=== PATIENT | male | born 1975 | race African-American/Black ===

== ENCOUNTER 2016-08-01 12:25 | Emergency (ER) | payer OTHER, SELFPAY ==
[2016-08-01 13:16] LABS: Bilirubin Negative (Negative); Blood, Urine Negative (Negative); Glucose, Urine (Dipstick) Negative (Negative); Ketone, Urine Negative (Negative); Nitrite Negative (Negative); Protein, Urine (Dipstick) Negative (Neg-Trace); Urobilinogen 0.2 mg/dL (0.2-1.0)
--- NOTE | 2016-08-01 13:31 | RAD ---
EXAM: CHEST 2 VIEWS: HISTORY: Back pain, left-sided. FINDINGS: Normal cardiac silhouette. The pulmonary vessels and hilum are normal. Costophrenic angles are phuc ar. No mass. No consolidation. No pneumothorax or osseous abnormalities. IMPRESSION: No acute cardiopulmonary process. POS: YENIH
[2016-08-01 13:50] LABS: #Basophils 0.1 thou/uL (0.0-0.2); #Lymphocytes 2.6 thou/uL (1.20-3.40); #Monocytes 0.5 thou/uL (0.11-0.59); #Neutrophils 3.7 thou/uL (1.40-6.50); %Basophils 1.8 % (0.0-1.0); %Eosinophils 0.9 % (0.0-10.0); %Lymphocytes 37.2 % (21.0-51.0); %Monocytes 7.7 % (0.0-10.0); Hematocrit 57.5 % (42.0-52.0); Red Blood Cell (RBC) Count 6.73 mill/uL (4.70-6.10)
[2016-08-01 13:53] LABS: Squamous Epithelial 0-3 HPF (0-3); WBC/HPF 0-3 HPF (0-3)
[2016-08-01 14:12] LABS: ALT (SGPT) 42 U/L (0-55); AST (SGOT) 31 U/L (5-34); Acetaminophen Less than 3.0 mcg/mL (10.0-30.0); Alkaline Phosphatase 96 U/L (40-150); Anion Gap 17 mmol/L (10-20); BUN (Urea Nitrogen) 9 mg/dL (8.9-20.6); Bilirubin, Total 0.5 mg/dL (0.2-1.2); Calc. Creatinine Clearance 0 mL/min (70-130); Carbon Dioxide 22 mmol/L (22-29); Chloride 104 mmol/L (98-107); Estimated GFR-MDRD 75; Globulin 4.5 g/dL (2.4-3.5); Protein, Total 9.1 g/dL (6.0-8.3); Salicylate Less than 5.0 mg/dL (15.0-30.0)
--- NOTE | 2016-08-01 14:31 | ERRECORD ---
[facility] (12:52 SHAN) CHIEF COMPLAINT: Patient presents for evaluation of pain, Patient presents for evaluation of tenderness. HISTORIAN: History provided by patient, pain in the left lower posterior costal margin since Thursday; 5 days. no apparent cause. has had lumbar spine surgery in the past. TIME COURSE: Gradual onset of symptoms. EXACERBATED BY: Patient's condition exacerbated by movement. RELIEVED BY: Patient's condition relieved by nothing. ROS (12:53 SHAN) CONSTITUTIONAL: Negative constitutional review of systems. EYES: Negative eye review of systems. ENT: Negative ears, nose, throat review of systems. CARDIOVASCULAR: Negative cardiovascular review of systems. RESPIRATORY: Negative respiratory review of systems. GI: Negative gastrointestinal review of systems. MUSCULOSKELETAL: Negative musculoskeletal review of systems. SKIN: Negative skin review of systems. NEUROLOGIC: Negative neurologic review of systems. NOTES: All systems reviewed, negative except as described above. PAST MEDICAL HISTORY (12:38 SMOO) MEDICAL HISTORY: Flu vaccine not up to date, Tetanus immunization up to date, Date of immunization: 2011, Past medical history includes history of hyperlipidemia, high cholesterol, Flu vaccine not up to date, Past medical history includes history of diabetes, diet controlled. VERIFIED 17. MALE SURGICAL HISTORY: Surgical history of orthopedic surgery, back and left ankle. VERIFIEFD 08-01-16. PSYCHIATRIC HISTORY: Psychiatric history includes, depression, no previous inpatient psychiatric admissions.VERIFIED 08-01-17. SOCIAL HISTORY: Patient drinks every day, less than 5 drinks per day, Patient currently uses drugs, abuses marijuana, Last used: 07/06/2016, Patient currently uses tobacco, smokes cigarettes, daily, Patient has smoked for 15 years, Patient smokes 1 pack per day, Lives at home, with family. VERIFIED 17. KNOWN ALLERGIES No Known Allergies (Unconfirmed) No Known Drug Allergies CURRENT MEDICATIONS (12:36 SMOO) None VITAL SIGNS VITAL SIGNS: BP: 149/99, Pulse: 96, Resp: 18, Temp: 97.6 (Oral), Pain: 10, O2 sat: 99 on Room Air, Time: 08/01/2016 12:32. (12:32 SMOO) &a-1R&a+25V*p+0X*y8458T*c202B*c15G*c2P*p-0X&a-25V&a+1R Name: Sindi Sunshine : 1975 M41 MedRec: [id number] AcctNum: [id number] Prepared: ThuAug 01, 2016 15:54 by Interface Page 1 of 3 pMD [facility] EMERGENCY RECORD BP: 145/88, Pulse: 92, Resp: 18, Temp: 97.6, Pain: 5, O2 sat: 100 on RA, Time: 08/01/2016 14:15. (14:15 SMOO) PHYSICAL EXAM (12:53 [facility]) CONSTITUTIONAL: Patient afebrile, Pulse normal, Blood pressure normal, Respiratory rate normal, Normal pulse oximetry, Patient appears non toxic, Patient appears pain free, Patient alert and oriented to person, place and time, Nursing notes reviewed. HEAD: Head exam included findings of head atraumatic, normocephalic. EYES: Eye exam included findings of eyelids normal to inspection, Pupils equally round and reactive to light, Extraocular muscles intact. ENT: Pharynx exam normal, Uvula exam normal, Tonsil exam normal. NECK: Neck exam included findings of normal range of motion, Trachea midline. RESPIRATORY CHEST: Respiratory and chest exam normal. CARDIOVASCULAR: Cardiovascular exam included findings of heart rate regular rate and rhythm, Heart sounds normal. ABDOMEN MALE: Abdominal exam included findings of abdomen nontender, Bowel sounds normal. BACK: Pain largely localized to the left inner posterior costal margins; appears very tender and superficial. UPPER EXTREMITY: Upper extremity exam included findings of inspection normal, Range of motion normal. NEURO: Neuro exam normal. SKIN: Skin exam normal. DOCTOR NOTES (14:10 SHAN) TEXT: labs and chest x-ray good; pain clearly increased with muscle motion; due to expressed degree of pain, recommended he do a ct of abdomen; he deffered. Then requested medications stronger than Tylenol 4 or [place]; explained that the medications beyond that would need to be through a regular provider or a pain management provider. DATA REVIEWED: Lab data reviewed, Xray data reviewed. PROBLEM LIST No recorded problems DIAGNOSIS (14:07 SHAN) FINAL: PRIMARY: back pain, muscular. PRESCRIPTION Flexeril: TABLET : 10 mg : ORAL : Quantity: 1 Unit: tab(s) Route: ORAL Schedule: every 6 hours PRN Dispense: 30 Unit: tab(s) May substitute. Refills: No Refills . (14:04 ANJALI) NOTES: No Refills. (14:04 ANJALI) Tylenol-Codeine #3: TABLET : 300 mg-30 mg : ORAL : Quantity: &a-1R&a+25V*p+0X*y1054R*c202B*c15G*c2P*p-0X&a-25V&a+1R Name: Sindi Sunshine : 1975 [facility] MedRec: [id number] AcctNum: [id number] Prepared: ThuAug 01, 2016 15:54 by Interface Page 2 of 3 pMD [facility] EMERGENCY RECORD 1 Unit: tab(s) Route: ORAL Schedule: every 6 hours PRN Dispense: 30 Unit: tab(s) May substitute. Refills: No Refills . (14:05 ANJALI) NOTES: No Refills. (14:05 ANJALI) DISPOSITION PATIENT: Disposition Type: Discharge, Disposition: *Discharge Home. (14:07 ANJALI) Patient left the department. (14:21 XENIA) Hutchinson: ANJALI=MD Javan, Bernard MICHAELS=ISABELA Monatnez, Yvonne &a-1R&a+25V*p+0X*d9157Y*c202B*c15G*c2P*p-0X&a-25V&a+1R Name: Sindi Sunshine Moses : 1975 [facility] MedRec: [id number] AcctNum: [id number] Prepared: ThuAug 01, 2016 15:54 by Interface Page 3 of 3 pMD MTDD
--- NOTE | 2016-08-01 14:34 | PICIS ---
[facility] EMERGENCY RECORD TRIAGE (ThuAug 01, 2016 12:35 SMOO) TRIAGE NOTES: LEFT FLANK PAIN X 1 WEEK, WORSE TODAY, RADIATES TO FRONT. (ThuAug 01, 2016 12:35 SMOO) PATIENT: NAME: Sindi Sunshine, AGE: 41, GENDER: male, : Yaquelin 1975, TIME OF GREET: ThuAug 01, 2016 12:26, PREFERRED LANGUAGE: Ukrainian, ETHNICITY: Not or , ECODE BILLING MAP: [facility], SSN: [id number], Zip Code: [address], KG WEIGHT: 113.4 (est.), PHONE: CELL, , , PERSON ID: [id number], PCP: MD Adams Jacques. (ThuAug 01, 2016 12:35 SMOO) COMPLAINT: LEFT SIDE BACK PAIN. (12:48 SMOO) ADMISSION: URGENCY: 3 Urgent, ADMISSION SOURCE: Home, TRANSPORT: Walk-in, BED: ER -03. (ThuAug 01, 2016 12:35 SMOO) IMMUNIZATIONS: Flu vaccine not up to date. (12:38 SMOO) SIRS SCORING: Heart Rate 55-109 (0), Temp range 96.8-101.1 (0), respiratory rate 12-24 (0), Mental Status altered: no (0), Infection or Suspected Infection: No. (12:38 SMOO) TRIAGE SCREENING: Patient denies suicidal ideation, Patient denies presence of domestic violence. (12:38 SMOO) PROVIDERS: TRIAGE NURSE: Yvonne Montanez RN. (ThuAug 01, 2016 12:35 SMOO) VITAL SIGNS: BP 149/99, Pulse 96, Resp 18, Temp 97.6, (Oral), Pain 10, O2 Sat 99, on Room Air, Time 08/01/2016 12:32. (12:32 SMOO) PREVIOUS VISIT ALLERGIES: No Known Drug Allergies. (ThuAug 01, 2016 12:35 SMOO) No Known Drug Allergies. (12:38 SMOO) KNOWN ALLERGIES No Known Allergies (Unconfirmed) No Known Drug Allergies CURRENT MEDICATIONS (12:36 SMOO) None VITAL SIGNS VITAL SIGNS: BP: 149/99, Pulse: 96, Resp: 18, Temp: 97.6 (Oral), Pain: 10, O2 sat: 99 on Room Air, Time: 08/01/2016 12:32. (12:32 SMOO) BP: 145/88, Pulse: 92, Resp: 18, Temp: 97.6, Pain: 5, O2 sat: 100 on RA, Time: 08/01/2016 14:15. (14:15 SMOO) NURSING ASSESSMENT: BACK (12:43 SMOO) CONSTITUTIONAL: Patient arrives ambulatory, Gait steady, History obtained from patient, Patient appears comfortable, Patient cooperative, Patient alert, Oriented to person, place and time, Skin warm, Skin dry, Skin normal in color, Mucous membranes pink, Mucous membranes moist, Patient is well-groomed, Patient complains of left side back pain, pt denies any urinary symptoms, states back has been hurting x 1 week but today when he coughs or laughs, it is worse. &a-1R&a+25V*p+0X*t5066U*c202B*c15G*c2P*p-0X&a-25V&a+1R Name: Sindi Sunshine : 1975 M41 MedRec: [id number] AcctNum: [id number] Prepared: ThuAug 01, 2016 16:01 by Interface Page 1 of 9 pMD [facility] EMERGENCY RECORD PAIN: unbearable pain, to the lower back, left side of back, on a scale 0-10 patient rates pain as 10, Pain exacerbated by, laughing, coughing, sneezing, Nothing has been tried to alleviate the pain. NURSING PROCEDURE: DISCHARGE NOTE (14:15 SMOO) DISCHARGE: Patient discharged to home, ambulating without assistance, driving self, unaccompanied, Summary of Care printed/ provided, Prescriptions given and instructions on side effects given, Name of prescription(s) given: FLEXARIL TYLENOL #3. VITAL SIGNS: BP: 145, / 88, Pulse: 92, Resp: 18, Temp: 97.6, Pain: 5, O2 sat: 100, on: RA. NURSING PROCEDURE: IV (13:00 MSPE) IV SITE 1: IV therapy indicated for hydration, IV therapy indicated for medication administration, IV established, to the right antecubital, using a 20 gauge catheter, in one attempt, IV site prepped with chloraprep, Saline lock established, Flushed with normal saline (mls): 10, Labs drawn at time of placement, labeled in the presence of the patient and sent to lab. NURSING PROCEDURE: TRANSPORT TO TESTS TRANSPORT TO TESTS: Patient transported to x-ray, ambulatory, Accompanied by x-ray hemodialysis technician. (13:03 MSPE) Patient transported to x-ray, ambulatory, Accompanied by x-ray hemodialysis technician, Patient arrived in location at 13:04, Patient departed location at 13:06. (12:58 CCRI) FOLLOW-UP: After procedure, patient returned to emergency department. (13:06 MSPE) ORDER DETAILS Order Name: CBC with Differential, Status: Active, Time: 12:52 08/01/2016, User: ANJALI, - Ordered for: MD Edouard Stanley, - Entered by: MD Edouard Stanley - Sriram Aug 01, 2016 12:52, - Quantity: 1, Order Name: Comprehensive Metabolic Panel, Status: Active, Time: 12:52 08/01/2016, User: ANJALI, - Ordered for: MD Edouard Stanley, - Entered by: MD Edouard Stanley - Sriram Aug 01, 2016 12:52, - Quantity: 1, Order Name: CRP (Inflamatory), Status: Active, Time: 12:52 08/01/2016, User: ANJALI, - Ordered for: MD Edouard Stanley, - Entered by: MD Edouard Stanley - Sriram Aug 01, 2016 12:52, - Quantity: 1, Order Name: Drug Screen, Serum, Status: Active, Time: 12:52 08/01/2016, User: ANJALI, - Ordered for: MD Edouard Stanley, &a-1R&a+25V*p+0X*w6876S*c202B*c15G*c2P*p-0X&a-25V&a+1R Name: Sindi Sunshine : 1975 M41 MedRec: [id number] AcctNum: [id number] Prepared: ThuAug 01, 2016 16:01 by Interface Page 2 of 9 pMD [facility] EMERGENCY RECORD - Entered by: MD Edouard Stanley - Fri Aug 01, 2016 12:52, - Quantity: 1, Order Name: Urinalysis with Microscopic, Status: Active, Time: 12:52 08/01/2016, User: ANJALI, - Ordered for: MD Edouard Stanley, - Entered by: MD Edouard Stanley - Fri Aug 01, 2016 12:52, - Quantity: 1, Order Name: XR Chest Pa & Lat STANDARD, Status: Active, Time: 12:51 08/01/2016, User: ANJALI, - Ordered for: MD Edouard Stanley, - Entered by: MD Edouard Stanley - Fri Aug 01, 2016 12:51, - Quantity: 1. HPI BACK (12:52 ANJALI) CHIEF COMPLAINT: Patient presents for evaluation of pain, Patient presents for evaluation of tenderness. HISTORIAN: History provided by patient, pain in the left lower posterior costal margin since Thursday; 5 days. no apparent cause. has had lumbar spine surgery in the past. TIME COURSE: Gradual onset of symptoms. EXACERBATED BY: Patient's condition exacerbated by movement. RELIEVED BY: Patient's condition relieved by nothing. ROS (12:53 SHAN) CONSTITUTIONAL: Negative constitutional review of systems. EYES: Negative eye review of systems. ENT: Negative ears, nose, throat review of systems. CARDIOVASCULAR: Negative cardiovascular review of systems. RESPIRATORY: Negative respiratory review of systems. GI: Negative gastrointestinal review of systems. MUSCULOSKELETAL: Negative musculoskeletal review of systems. SKIN: Negative skin review of systems. NEUROLOGIC: Negative neurologic review of systems. NOTES: All systems reviewed, negative except as described above. PAST MEDICAL HISTORY (12:38 SMOO) MEDICAL HISTORY: Flu vaccine not up to date, Tetanus immunization up to date, Date of immunization: 2011, Past medical history includes history of hyperlipidemia, high cholesterol, Flu vaccine not up to date, Past medical history includes history of diabetes, diet controlled. VERIFIED 08-01-16. MALE SURGICAL HISTORY: Surgical history of orthopedic surgery, back and left ankle. VERIFIEFD 08-01-16. PSYCHIATRIC HISTORY: Psychiatric history includes, depression, no previous inpatient psychiatric admissions.VERIFIED 08-01-16. SOCIAL HISTORY: Patient drinks every day, less than 5 drinks per day, Patient currently uses drugs, abuses marijuana, Last used: 07/06/2016, Patient currently uses tobacco, smokes cigarettes, &a-1R&a+25V*p+0X*y9866C*c202B*c15G*c2P*p-0X&a-25V&a+1R Name: Sindi Sunshine : 1975 M41 MedRec: [id number] AcctNum: [id number] Prepared: ThuAug 01, 2016 16:01 by Interface Page 3 of 9 pMD [facility] EMERGENCY RECORD daily, Patient has smoked for 15 years, Patient smokes 1 pack per day, Lives at home, with family. VERIFIED 08-01-16. PHYSICAL EXAM (12:53 SHAN) CONSTITUTIONAL: Patient afebrile, Pulse normal, Blood pressure normal, Respiratory rate normal, Normal pulse oximetry, Patient appears non toxic, Patient appears pain free, Patient alert and oriented to person, place and time, Nursing notes reviewed. HEAD: Head exam included findings of head atraumatic, normocephalic. EYES: Eye exam included findings of eyelids normal to inspection, Pupils equally round and reactive to light, Extraocular muscles intact. ENT: Pharynx exam normal, Uvula exam normal, Tonsil exam normal. NECK: Neck exam included findings of normal range of motion, Trachea midline. RESPIRATORY CHEST: Respiratory and chest exam normal. CARDIOVASCULAR: Cardiovascular exam included findings of heart rate regular rate and rhythm, Heart sounds normal. ABDOMEN MALE: Abdominal exam included findings of abdomen nontender, Bowel sounds normal. BACK: Pain largely localized to the left inner posterior costal margins; appears very tender and superficial. UPPER EXTREMITY: Upper extremity exam included findings of inspection normal, Range of motion normal. NEURO: Neuro exam normal. SKIN: Skin exam normal. EVENTS TRANSFER: Triage to Emergency Emergency Room -03. (12:36 SMOO) Removed from Emergency Emergency Room -03. (14:21 SMOO) DOCTOR NOTES (14:10 SHAN) TEXT: labs and chest x-ray good; pain clearly increased with muscle motion; due to expressed degree of pain, recommended he do a ct of abdomen; he deffered. Then requested medications stronger than Tylenol 4 or [place]; explained that the medications beyond that would need to be through a regular provider or a pain management provider. DATA REVIEWED: Lab data reviewed, Xray data reviewed. PROBLEM LIST No recorded problems DIAGNOSIS (14:07 ) FINAL: PRIMARY: back pain, muscular. DISPOSITION PATIENT: Disposition Type: Discharge, Disposition: *Discharge Home. (14:07 SHAN) &a-1R&a+25V*p+0X*i3158O*c202B*c15G*c2P*p-0X&a-25V&a+1R Name: Sindi Sunshine : 1975 M41 MedRec: [id number] AcctNum: [id number] Prepared: ThuAug 01, 2016 16:01 by Interface Page 4 of 9 pMD [facility] EMERGENCY RECORD Patient left the department. (14:21 SMOO) INSTRUCTION (14:06 SHAN) DISCHARGE: BACK PAIN (ACUTE OR CHRONIC), LOW BACK PAIN GENERAL. FOLLOWUP: MD Adams Jacques, Family Practice, [facility], [address] [place] [id number], . SPECIAL: 1. muscle relaxant if needed up to three times a day 2. pain pill sparingly if needed 3. try hot packs and massage 4. return if condition worsens. PRESCRIPTION Flexeril: TABLET : 10 mg : ORAL : Quantity: 1 Unit: tab(s) Route: ORAL Schedule: every 6 hours PRN Dispense: 30 Unit: tab(s) May substitute. Refills: No Refills . (14:04 SHAN) NOTES: No Refills. (14:04 SHAN) Tylenol-Codeine #3: TABLET : 300 mg-30 mg : ORAL : Quantity: 1 Unit: tab(s) Route: ORAL Schedule: every 6 hours PRN Dispense: 30 Unit: tab(s) May substitute. Refills: No Refills . (14:05 SHAN) NOTES: No Refills. (14:05 SHAN) IMAGING *DISCHARGE INSTRUCTIONS RECEIPT: Image captured from scanner. (14:55 SMOO) *SUPPLY CHARGE SHEET: Image captured from scanner. (14:56 SMOO) ADMIN (15:48 SHAN) DIGITAL SIGNATURE: MD Edouard Stanley. RESULTS LABORATORY: Urinalysis with Microscopic Collection DT: ThuAug 01, 2016 13:11, Color Yellow , Range (Yellow), Clarity Clear , Range (Clear), Specific [place], Urine 1.025 , Range (1.005-1.030), pH, Urine 6.5 , Range (5.0-9.0), Leukocyte Negative , Range (Negative), Nitrite Negative , Range (Negative), Protein, Urine (Dipstick) Negative mg/dL, Range (Neg-Trace), Glucose, Urine (Dipstick) Negative mg/dL, Range (Negative), Ketone, Urine Negative mg/dL, Range (Negative), Urobilinogen 0.2 mg/dL, Range (0.2-1.0), Bilirubin Negative , Range (Negative), Blood, Urine Negative , Range (Negative), WBC/HPF 0-3 HPF, Range (0-3), Squamous Epithelial 0-3 HPF, Range (0-3). (14:00 SHAN) CBC with Differential Collection DT: ThuAug 01, 2016 13:11, White Blood Cell (WBC) Count 7.0 thou/uL, Range (4.8-10.8), &a-1R&a+25V*p+0X*t1501M*c202B*c15G*c2P*p-0X&a-25V&a+1R Name: Sindi Sunshine Moses : 1975 M41 MedRec: [id number] AcctNum: [id number] Prepared: ThuAug 01, 2016 16:01 by Interface Page 5 of 9 [facility] EMERGENCY RECORD *Red Blood Cell (RBC) Count 6.73 - H mill/uL, Range (4.70-6.10), Hemoglobin 17.5 g/dL, Range (14.0-18.0), *Hematocrit 57.5 - H %, Range (42.0-52.0), Mean Corpuscular Volume 85.4 fl, Range (80.0-94.0), *Mean Corpuscular Hemoglobin 26.1 - L pg, Range (27.0-31.0), *Mean Corpuscular HGB CONC 30.5 - L g/dL, Range (32.0-36.0), RBC Distribution Width 14.2 %, Range (11.5-14.5), Platelet Count 256 thou/uL, Range (130-400), Mean Platelet Volume 8.0 fL, Range (7.4-10.4), %Neutrophils 52.4 %, Range (42.0-75.0), %Lymphocytes 37.2 %, Range (21.0-51.0), %Monocytes 7.7 %, Range (0.0-10.0), %Eosinophils 0.9 %, Range (0.0-10.0), *%Basophils 1.8 - H %, Range (0.0-1.0), #Neutrophils 3.7 thou/uL, Range (1.40-6.50), #Lymphocytes 2.6 thou/uL, Range (1.20-3.40), #Monocytes 0.5 thou/uL, Range (0.11-0.59), #Basophils 0.1 thou/uL, Range (0.0-0.2). (14:00 SHAN) CRP (Inflammatory) Collection DT: ThuAug 01, 2016 13:11, CRP (Inflammatory) Less than 0.50 mg/dL, Range (= or < 0.5). (14:00 SHAN) Drug Screen, Blood Collection DT: ThuAug 01, 2016 13:11, *Acetaminophen Less than 3.0 - L mcg/mL, Range (10.0-30.0), Therapeutic Range: 10.0 - 30.0 ug/mL Toxic Range: Possible, toxicity: 150 - 200 ug/mL Probable toxicity: Greater than 200, ug/mL *IMPORTANT TESTING INFORMATION* The half-life of NAC is 2, hours. The total NAC clearance is 5.6 hours for adults and 11 hours for, Newborns. Testing acetaminophen levels prior to a reasonable time frame, for clearance can cause falsely decreased acetaminophen levels. , Alcohol Less than 10 mg/dL, Range (Less than 10), The pharmacological response to blood alcohol levels may vary from, individual to individual. Negative: Less than 10, mg/dL Toxic: 50 - 100 mg/dL , Depression of EMPLOYMENT COUNSELOR: Greater than 100 mg/dL , Fatalities reported: Greater than 400 mg/dL , *Salicylate Less than 5.0 - L mg/dL, Range (15.0-30.0). (14:17 SHAN) &a-1R&a+25V*p+0X*k6018V*c202B*c15G*c2P*p-0X&a-25V&a+1R Name: Sindi Sunshine : 1975 M41 MedRec: [id number] AcctNum: [id number] Prepared: ThuAug 01, 2016 16:01 by Interface Page 6 of 9 pMD [facility] EMERGENCY RECORD Comprehensive Metabolic Panel Collection DT: ThuAug 01, 2016 13:11, Sodium 138 mmol/L, Range (136-145), Potassium 5.1 mmol/L, Range (3.5-5.1), Chloride 104 mmol/L, Range (98-107), Carbon Dioxide 22 mmol/L, Range (22-29), Anion Gap 17 mmol/L, Range (10-20), BUN (Urea Nitrogen) 9 mg/dL, Range (8.9-20.6), Creatinine 1.28 mg/dL, Range (0.7-1.3), Estimated GFR-MDRD 75 , Reference Range for Estimated GFR: Greater than 90, mL/min/1.73 m2 NOTE: The MDRD equation has not been validated for use, with the elderly (over 70 years of age), women, patients with, serious comorbid condition or persons with extremes of body size, muscle, mass, or nutritional status. , *Glucose 110 - H mg/dL, Range (70-105), Calcium 10.0 mg/dL, Range (7.8-10.44), Bilirubin, Total 0.5 mg/dL, Range (0.2-1.2), *Protein, Total 9.1 - H g/dL, Range (6.0-8.3), NOTE: Plasma values are generally 0.3 to 0.5 g/dL higher than serum values, due to the presence of fibrinogen. , Albumin 4.6 g/dL, Range (3.5-5.0), *Globulin 4.5 - H g/dL, Range (2.4-3.5), *Alb/Glob Ratio 1.0 - L g/dL, Range (1.2-2.2), Alkaline Phosphatase 96 U/L, Range (40-150), AST (SGOT) 31 U/L, Range (5-34), ALT (SGPT) 42 U/L, Range (0-55). (14:17 ANJALI) Drug Screen, Blood Collection DT: ThuAug 01, 2016 13:11, *Acetaminophen Less than 3.0 - L mcg/mL, Range (10.0-30.0), Therapeutic Range: 10.0 - 30.0 ug/mL Toxic Range: Possible, toxicity: 150 - 200 ug/mL Probable toxicity: Greater than 200, ug/mL *IMPORTANT TESTING INFORMATION* The half-life of NAC is 2, hours. The total NAC clearance is 5.6 hours for adults and 11 hours for, Newborns. Testing acetaminophen levels prior to a reasonable time frame, for clearance can cause falsely decreased acetaminophen levels. , Alcohol Less than 10 mg/dL, Range (Less than 10), The pharmacological response to blood alcohol levels may vary from, individual to individual. Negative: Less than 10, mg/dL Toxic: 50 - 100 mg/dL , Depression of &a-1R&a+25V*p+0X*r8408Z*c202B*c15G*c2P*p-0X&a-25V&a+1R Name: Sindi Sunshine : 1975 M41 MedRec: [id number] AcctNum: [id number] Prepared: ThuAug 01, 2016 16:01 by Interface Page 7 of 9 pMD [facility] EMERGENCY RECORD EMPLOYMENT COUNSELOR: Greater than 100 mg/dL , Fatalities reported: Greater than 400 mg/dL , *Salicylate Less than 5.0 - L mg/dL, Range (15.0-30.0). (14:17 ANJALI) Comprehensive Metabolic Panel Collection DT: ThuAug 01, 2016 13:11, Sodium 138 mmol/L, Range (136-145), Potassium 5.1 mmol/L, Range (3.5-5.1), Chloride 104 mmol/L, Range (98-107), Carbon Dioxide 22 mmol/L, Range (22-29), Anion Gap 17 mmol/L, Range (10-20), BUN (Urea Nitrogen) 9 mg/dL, Range (8.9-20.6), Creatinine 1.28 mg/dL, Range (0.7-1.3), Estimated GFR-MDRD 75 , Reference Range for Estimated GFR: Greater than 90, mL/min/1.73 m2 NOTE: The MDRD equation has not been validated for use, with the elderly (over 70 years of age), women, patients with, serious comorbid condition or persons with extremes of body size, muscle, mass, or nutritional status. , *Glucose 110 - H mg/dL, Range (70-105), Calcium 10.0 mg/dL, Range (7.8-10.44), Bilirubin, Total 0.5 mg/dL, Range (0.2-1.2), *Protein, Total 9.1 - H g/dL, Range (6.0-8.3), NOTE: Plasma values are generally 0.3 to 0.5 g/dL higher than serum values, due to the presence of fibrinogen. , Albumin 4.6 g/dL, Range (3.5-5.0), *Globulin 4.5 - H g/dL, Range (2.4-3.5), *Alb/Glob Ratio 1.0 - L g/dL, Range (1.2-2.2), Alkaline Phosphatase 96 U/L, Range (40-150), AST (SGOT) 31 U/L, Range (5-34), ALT (SGPT) 42 U/L, Range (0-55). (14:17 SHAN) Drug Screen, Blood Collection DT: ThuAug 01, 2016 13:11, *Acetaminophen Less than 3.0 - L mcg/mL, Range (10.0-30.0), Therapeutic Range: 10.0 - 30.0 ug/mL Toxic Range: Possible, toxicity: 150 - 200 ug/mL Probable toxicity: Greater than 200, ug/mL *IMPORTANT TESTING INFORMATION* The half-life of NAC is 2, hours. The total NAC clearance is 5.6 hours for adults and 11 hours for, Newborns. Testing acetaminophen levels prior to a reasonable time frame, for clearance can cause falsely decreased acetaminophen levels. , Alcohol Less than 10 mg/dL, Range (Less than 10), The pharmacological response to blood alcohol levels may vary from, individual to individual. &a-1R&a+25V*p+0X*p6882Z*c202B*c15G*c2P*p-0X&a-25V&a+1R Name: Sindi Sunshine : 1975 M41 MedRec: [id number] AcctNum: [id number] Prepared: ThuAug 01, 2016 16:01 by Interface Page 8 of 9 pMD [facility] EMERGENCY RECORD Negative: Less than 10, mg/dL Toxic: 50 - 100 mg/dL , Depression of EMPLOYMENT COUNSELOR: Greater than 100 mg/dL , Fatalities reported: Greater than 400 mg/dL , *Salicylate Less than 5.0 - L mg/dL, Range (15.0-30.0). (14:17 SHAN) Comprehensive Metabolic Panel Collection DT: ThuAug 01, 2016 13:11, Sodium 138 mmol/L, Range (136-145), Potassium 5.1 mmol/L, Range (3.5-5.1), Chloride 104 mmol/L, Range (98-107), Carbon Dioxide 22 mmol/L, Range (22-29), Anion Gap 17 mmol/L, Range (10-20), BUN (Urea Nitrogen) 9 mg/dL, Range (8.9-20.6), Creatinine 1.28 mg/dL, Range (0.7-1.3), Estimated GFR-MDRD 75 , Reference Range for Estimated GFR: Greater than 90, mL/min/1.73 m2 NOTE: The MDRD equation has not been validated for use, with the elderly (over 70 years of age), women, patients with, serious comorbid condition or persons with extremes of body size, muscle, mass, or nutritional status. , *Glucose 110 - H mg/dL, Range (70-105), Calcium 10.0 mg/dL, Range (7.8-10.44), Bilirubin, Total 0.5 mg/dL, Range (0.2-1.2), *Protein, Total 9.1 - H g/dL, Range (6.0-8.3), NOTE: Plasma values are generally 0.3 to 0.5 g/dL higher than serum values, due to the presence of fibrinogen. , Albumin 4.6 g/dL, Range (3.5-5.0), *Globulin 4.5 - H g/dL, Range (2.4-3.5), *Alb/Glob Ratio 1.0 - L g/dL, Range (1.2-2.2), Alkaline Phosphatase 96 U/L, Range (40-150), AST (SGOT) 31 U/L, Range (5-34), ALT (SGPT) 42 U/L, Range (0-55). (14:17 ANJALI) [place]: GUI=DAVIN [place] MSPE=ISABELA Mcdonough, Dolly ALBA=MD Javan, Bernard MICHAELS=ISABELA Montanez, Yvonne &a-1R&a+25V*p+0X*m2592N*c202B*c15G*c2P*p-0X&a-25V&a+1R Name: Sindi Sunshine : 1975 M41 MedRec: [id number] AcctNum: [id number] Prepared: ThuAug 01, 2016 16:01 by Interface Page 9 of 9 pMD MTDD
== END 2016-08-01 14:15 | disposition home or self-care (01) ==
LOC: NAV ERS 12:25
DX: M54.9 Dorsalgia, unspecified (principal); E11.9 Type 2 diabetes mellitus without complications; E78.5 Hyperlipidemia, unspecified; E78.00 Pure hypercholesterolemia, unspecified; F32.9 Major depressive disorder, single episode, unspecified; F17.210 Nicotine dependence, cigarettes, uncomplicated
CPT/HCPCS: 71020; 80053; 80307; 81001; 85025; 86140; 99283; G0479

== ENCOUNTER 2017-06-03 07:50 | Emergency (ER) | payer MEDICAID, SELFPAY ==
[2017-06-03] MEDS ORDERED: Ketorolac Tromethamine 60 MG/2 ML VIAL ONE (08:22)
--- NOTE | 2017-06-03 08:41 | RAD ---
2 VIEWS RIGHT SHOULDER: Date: 06/03/17 COMPARISON: None. HISTORY: Right shoulder pain since last night. FINDINGS: Two views of the right shoulder show no evidence of acute fracture or dislocation. No degenerative c hanges are seen. IMPRESSION: Unremarkable exam. POS: [facility]
== END 2017-06-03 08:35 | disposition home or self-care (01) ==
LOC: NAV ERS 07:50
DX: M75.51 Bursitis of right shoulder (principal); E78.5 Hyperlipidemia, unspecified; E11.9 Type 2 diabetes mellitus without complications; F32.9 Major depressive disorder, single episode, unspecified; F17.210 Nicotine dependence, cigarettes, uncomplicated
CPT/HCPCS: 96372; J1885

== ENCOUNTER 2017-08-09 04:58 | Emergency (ER) | payer MEDICARE, SELFPAY ==
[2017-08-09] MEDS ORDERED: Ketorolac Tromethamine 60 MG/2 ML VIAL ONE (05:14)
[2017-08-09] MEDS ORDERED: Benzonatate 100 MG CAP ONE (05:23)
== END 2017-08-09 05:55 | disposition home or self-care (01) ==
LOC: NAV ERS 04:58
DX: M75.01 Adhesive capsulitis of right shoulder (principal); M54.31 Sciatica, right side; J06.9 Acute upper respiratory infection, unspecified; E11.9 Type 2 diabetes mellitus without complications; E78.5 Hyperlipidemia, unspecified; F32.9 Major depressive disorder, single episode, unspecified; F17.210 Nicotine dependence, cigarettes, uncomplicated
CPT/HCPCS: 96372; J1885

== ENCOUNTER 2018-02-11 13:08 | Outpatient (CLI) | payer MEDICARE ==
--- NOTE | 2018-02-11 15:15 | RAD ---
RIGHT SHOUDLER 3 VIEWS: HISTORY: Pain. COMPARISON: Comparison from 2017. FINDINGS: There is no acute fracture or malalignment. Visualized ribs are unremarkable. Mild degenerative disease of the acromioclavicular joint. IMPRESSION: No acute fracture or malalignment. POS: [facility]
== END 2018-02-11 13:09 | disposition home or self-care (01) ==
LOC: NAV RAD 13:08
PROVIDERS: ATTEND Orthopaedic Surgery
DX: M25.511 Pain in right shoulder (principal)

== ENCOUNTER 2018-07-18 15:43 | Emergency (ER) | payer MEDICARE ==
[2018-07-18] MEDS ORDERED: NS 0.9% w/ 20 MEQ KCL 1,000 ML ONE (16:12)
[2018-07-18 16:15] LABS: #Basophils 0.1 thou/uL (0.0-0.2); #Lymphocytes 1.6 thou/uL (1.20-3.40); #Monocytes 0.6 thou/uL (0.11-0.59); #Neutrophils 6.7 thou/uL (1.40-6.50); %Eosinophils 0.2 % (0.0-10.0); %Lymphocytes 17.4 % (21.0-51.0); %Monocytes 6.5 % (0.0-10.0); %Neutrophils 74.9 % (42.0-75.0); Hemoglobin 17.8 g/dL (14.0-18.0); Mean Corpuscular HGB CONC 31.3 g/dL (32.0-36.0); Mean Corpuscular Hemoglobin 25.8 pg (27.0-31.0); Mean Corpuscular Volume 82.3 fL (78.0-98.0); Mean Platelet Volume 9.2 fL (7.4-10.4); Platelet Count 251 thou/uL (130-400); RBC Distribution Width 13.4 % (11.5-14.5)
[2018-07-18 16:18] LABS: Bilirubin Negative (Negative); Blood, Urine Trace (Negative); Clarity Clear (Clear); Glucose, Urine (Dipstick) 500 mg/dL (Negative); Leukocyte Negative (Negative); Nitrite Negative (Negative); Protein, Urine (Dipstick) Negative (Neg-Trace); Urobilinogen 0.2 mg/dL (0.2-1.0); pH, Urine 5.5 (5.0-9.0)
[2018-07-18] MEDS ORDERED: Sodium Chloride 0.9% 1,000 ML ONE ×2 (16:21→17:40)
[2018-07-18 16:29] LABS: ALT (SGPT) 34 U/L (8-55); AST (SGOT) 11 U/L (5-34); Albumin 4.3 g/dL (3.5-5.0); Alkaline Phosphatase 123 U/L (40-150); Anion Gap 24 mmol/L (10-20); BUN (Urea Nitrogen) 18 mg/dL (8.9-20.6); Bilirubin, Total 0.8 mg/dL (0.2-1.2); Calc. Creatinine Clearance 0 mL/min (70-130); Calcium 9.8 mg/dL (7.8-10.44); Carbon Dioxide 14 mmol/L (22-29); Chloride 94 mmol/L (98-107); Estimated GFR-MDRD 45; Globulin 3.2 g/dL (2.4-3.5); Potassium 5.1 mmol/L (3.5-5.1); Protein, Total 7.5 g/dL (6.0-8.3); Sodium 127 mmol/L (136-145)
[2018-07-18 16:31] LABS: Lipase 35 U/L (8-78); Magnesium 2.1 mg/dL (1.6-2.6); Phosphorus 4.8 mg/dL (2.3-4.7)
[2018-07-18 16:32] LABS: Glucose 721 mg/dL (70-105)
[2018-07-18 16:40] LABS: Base Excess-Venous -9.1 mmol/L (0 (+/- 2.5)); Bicarbonate (HCO3v) 18.1 mmol/L (22.0-29.0); CO2 Tension (PvCO2) 42.9 mmHg (41.0-51.0); O2 Tension (PvO2) 43.4 mmHg (35.0-45.0); vO2 Saturation-calc 70.4 % (94-98)
[2018-07-18 16:41] LABS: Hemoglobin - Calc 21.1 g/dL (12.0-18.0); pH (Venous) 7.234 (7.35-7.45)
[2018-07-18 16:44] LABS: RBC/HPF 0-3 HPF (0-3); Squamous Epithelial 0-3 HPF (0-3)
[2018-07-18] MEDS ORDERED: Insulin Regular 300 UNITS/3 ML VIAL ONE (17:00)
--- NOTE | 2018-07-18 17:28 | RAD ---
PA AND LATERAL CHEST: HISTORY: Weight loss. Cough. COMPARISON: 08/01/2016 FINDINGS: Heart size and mediastinum are within normal limits. Lungs are clear of infiltrates. There is mild scoliotic change of the spine. IMPRESSION: No active intrathoracic disease. POS: [facility]
[2018-07-21 14:16] LABS: Calcium, Ionized 1.11 mmol/L (1.12-1.32); Potassium 4.6 mmol/L (3.4-4.7); T. Carbon Dioxide 19.5 mmol/L (1.0-85.0)
== END 2018-07-18 18:09 | disposition short-term general hospital (02) ==
LOC: NAV ERS 15:43
DX: E11.10 Type 2 diabetes mellitus with ketoacidosis without coma (principal); E87.2 Acidosis; N17.9 Acute kidney failure, unspecified; E78.5 Hyperlipidemia, unspecified; F32.9 Major depressive disorder, single episode, unspecified; F17.210 Nicotine dependence, cigarettes, uncomplicated
CPT/HCPCS: 36416; 71046; 80053; 81003; 81015; 82010; 82330; 82803; 83605; 83690; 83735; 84100; 85025; 87040; 93005; 96361; 96365; 96374; 36415-59; J1815; J7050

== ENCOUNTER 2020-05-29 09:44 | Emergency (ER) | payer MEDICARE ==
[2020-05-29] MEDS ORDERED: Sodium Chloride 0.9% 1,000 ML ONE ×3 (10:08→11:57)
[2020-05-29] MEDS ORDERED: Ondansetron PF 4 MG/2 ML Vial ONE (10:08)
[2020-05-29] MEDS ORDERED: Insulin Regular 300 UNITS/3 ML VIAL ONE (10:22)
[2020-05-29] MEDS ORDERED: Sodium Chloride 0.9% 100 ML ONE (10:33)
[2020-05-29 10:35] LABS: Base Excess-Venous -19.1 mmol/L (-2.0 to 3.0); Bicarbonate (HCO3v) 8.3 mmol/L (22.0-28.0); CO2 Tension (PvCO2) 25.5 mmHg (40.0-50.0); Calcium, Ionized 1.27 mmol/L (1.15-1.33); Chloride 92 mmol/L (98-107); Hemoglobin - Calc 19.6 g/dL (14.0-18.0); Potassium 5.6 mmol/L (3.5-5.1); Sodium 116 mmol/L (138-145); T. Carbon Dioxide 9.1 mmol/L (22.0-28.0); vO2 Saturation-calc 93.2 % (60.0-85.0)
--- NOTE | 2020-05-29 10:41 | RAD ---
XR Chest 1 View Portable HISTORY: Nausea and vomiting, dyspnea COMPARISON: 07/18/2018 FINDINGS: The heart size is normal. The lungs are well expanded without focal areas of consolidation, pneumothorax or pleural effusions. Mild scoliosis of the spine is again seen.. IMPRESSION: No radiographic evidence of acute cardiopulmonary process.
[2020-05-29 11:13] LABS: ALT (SGPT) 25 U/L (8-55); AST (SGOT) 13 U/L (5-34); Albumin 4.1 g/dL (3.5-5.0); Alkaline Phosphatase 165 U/L (40-110); BUN (Urea Nitrogen) 48 mg/dL (8.9-20.6); Bilirubin, Total 0.6 mg/dL (0.2-1.2); Calc. Creatinine Clearance 0 mL/min (70-130); Calcium 11.2 mg/dL (7.8-10.44); Carbon Dioxide Less than 8 mmol/L (22-29); Chloride 81 mmol/L (98-107); Estimated GFR-MDRD 27; Globulin 4.2 g/dL (2.4-3.5); Glucose 912 mg/dL (70-105); Potassium 5.7 mmol/L (3.5-5.1); Protein, Total 8.3 g/dL (6.0-8.3); Sodium 120 mmol/L (136-145)
[2020-05-29 11:17] LABS: #Basophils 0.1 thou/uL (0.0-0.2); #Monocytes 0.9 thou/uL (0.11-0.59); #Neutrophils 13.1 thou/uL (1.40-6.50); %Basophils 0.8 % (0.0-1.0); %Lymphocytes 6.6 % (21.0-51.0); %Monocytes 6.1 % (0.0-10.0); %Neutrophils 86.5 % (42.0-75.0); Mean Corpuscular HGB CONC 29.4 g/dL (32.0-36.0); Mean Corpuscular Hemoglobin 25.4 pg (27.0-31.0); Mean Corpuscular Volume 86.5 fL (78.0-98.0); Mean Platelet Volume 7.6 fL (7.4-10.4); Platelet Count 277 thou/uL (130-400); White Blood Cell (WBC) Count 15.2 thou/uL (4.8-10.8)
[2020-05-29 12:59] LABS: Anion Gap 33 mmol/L (10-20); BUN (Urea Nitrogen) 45 mg/dL (8.9-20.6); Calc. Creatinine Clearance 0 mL/min (70-130); Calcium 10.4 mg/dL (7.8-10.44); Chloride 90 mmol/L (98-107); Estimated GFR-MDRD 32; Sodium 124 mmol/L (136-145)
[2020-05-29 13:03] LABS: Carbon Dioxide 8 mmol/L (22-29); Glucose 763 mg/dL (70-105)
== END 2020-05-29 12:32 | disposition short-term general hospital (02) ==
LOC: NAV ERS 09:44
DX: E11.10 Type 2 diabetes mellitus with ketoacidosis without coma (principal); E86.9 Volume depletion, unspecified; N28.9 Disorder of kidney and ureter, unspecified; E78.5 Hyperlipidemia, unspecified; E78.00 Pure hypercholesterolemia, unspecified; F32.9 Major depressive disorder, single episode, unspecified; F17.210 Nicotine dependence, cigarettes, uncomplicated
CPT/HCPCS: 36416; 71045; 80053; 80307; 82010; 82330; 82803; 84443; 85025; 96365; 96366; 96374; 96375; J1815; J2405; J7050

== ENCOUNTER 2020-12-15 07:37 | Emergency (ER) | payer MEDICARE ==
[2020-12-15] MEDS ORDERED: Ondansetron PF 4 MG/2 ML Vial ONE ×2 (08:12→09:36)
[2020-12-15] MEDS ORDERED: Sodium Chloride 0.9% 1,000 ML ONE ×3 (08:19→09:19)
[2020-12-15 08:24] LABS: Base Excess-Venous -21.5 mmol/L (-2.0 to 3.0); Bicarbonate (HCO3v) 6.9 mmol/L (22.0-28.0); CO2 Tension (PvCO2) 23.8 mmHg (42.0-51.0); Calcium, Ionized 0.97 mmol/L (1.15-1.33); Chloride 88 mmol/L (98-107); Hemoglobin - Calc 21.1 g/dL (14.0-18.0); Potassium 5.5 mmol/L (3.5-5.1); Sodium 113 mmol/L (138-145); T. Carbon Dioxide 7.6 mmol/L (22.0-28.0); vO2 Saturation-calc 76.6 % (60.0-85.0)
[2020-12-15] MEDS ORDERED: Sodium Chloride 0.9% 100 ML ONE ×2 (08:35→09:18)
[2020-12-15] MEDS ORDERED: Cefepime 2 GM VIAL ONE (08:35)
[2020-12-15 08:39] LABS: ALT (SGPT) 15 U/L (8-55); AST (SGOT) 12 U/L (5-34); Albumin 3.8 g/dL (3.5-5.0); Alkaline Phosphatase 159 U/L (40-110); BUN (Urea Nitrogen) 58 mg/dL (8.9-20.6); Bilirubin, Total 0.6 mg/dL (0.2-1.2); Calc. Creatinine Clearance 0 mL/min (70-130); Calcium 9.4 mg/dL (7.8-10.44); Chloride 77 mmol/L (98-107); Lipase 30 U/L (8-78); Magnesium 2.3 mg/dL (1.6-2.6); Potassium 5.7 mmol/L (3.5-5.1); Protein, Total 7.8 g/dL (6.0-8.3); Sodium 121 mmol/L (136-145)
[2020-12-15 08:46] LABS: #Basophils 0.1 thou/uL (0.0-0.2); #Lymphocytes 1.2 thou/uL (1.20-3.40); #Monocytes 1.1 thou/uL (0.11-0.59); #Neutrophils 14.8 thou/uL (1.40-6.50); %Basophils 0.7 % (0.0-1.0); %Lymphocytes 7.2 % (21.0-51.0); %Monocytes 6.3 % (0.0-10.0); %Neutrophils 85.8 % (42.0-75.0); Carbon Dioxide Less than 8 mmol/L (22-29); Hemoglobin 17.5 g/dL (14.0-18.0); Mean Corpuscular HGB CONC 27.7 g/dL (32.0-36.0); Mean Corpuscular Hemoglobin 24.3 pg (27.0-31.0); Mean Corpuscular Volume 87.6 fL (78.0-98.0); Mean Platelet Volume 7.7 fL (7.4-10.4); Platelet Count 369 thou/uL (130-400); RBC Distribution Width 13.8 % (11.5-14.5); White Blood Cell (WBC) Count 17.3 thou/uL (4.8-10.8)
[2020-12-15 08:52] LABS: Red Blood Cell (RBC) Count 6.82 mill/uL (4.70-6.10)
[2020-12-15 08:53] LABS: Glucose 1048 mg/dL (70-105)
[2020-12-15] MEDS ORDERED: Insulin Regular 300 UNITS/3 ML VIAL ONE (09:17)
[2020-12-15] MEDS ORDERED: Sodium Chloride 0.9% 500 ML ONE (09:45)
[2020-12-15 09:57] LABS: Bilirubin Negative (Negative); Blood, Urine Small (Negative); Clarity Clear (Clear); Glucose, Urine (Dipstick) >=1000 mg/dL (Negative); Ketone, Urine > or equal to 80 mg/dL (Negative); Leukocyte Negative (Negative); Nitrite Negative (Negative); Protein, Urine (Dipstick) 30 mg/dL (Neg-Trace); Specific Gravity, Urine 1.015 (1.005-1.030); Urobilinogen 0.2 mg/dL (Less than 2)
[2020-12-15 10:03] LABS: Amphetamine Not Detected (NotDetected); Barbiturates Screen Not Detected (NotDetected); Benzodiazepine Screen Not Detected (NotDetected); Cocaine Metabolite Screen Not Detected (NotDetected); Medtox Control Line Valid? VALID (VALID); Methadone Not Detected (NotDetected); Methamphetamine Not Detected (NotDetected); Opiate Screen Not Detected (NotDetected); Oxycodone Screen Not Detected (NotDetected); Phencyclidine (PCP) Not Detected (NotDetected); THC/Cannabinoid Screen Not Detected (NotDetected); Tricyclic Screen Not Detected (NotDetected)
[2020-12-15 10:07] LABS: RBC/HPF None Seen HPF (0-3); WBC/HPF 0-3 HPF (0-3)
== END 2020-12-15 10:10 | disposition short-term general hospital (02) ==
LOC: NAV ERS 07:37
DX: A41.9 Sepsis, unspecified organism (principal); E11.10 Type 2 diabetes mellitus with ketoacidosis without coma; N17.9 Acute kidney failure, unspecified; E11.65 Type 2 diabetes mellitus with hyperglycemia; E87.5 Hyperkalemia; E78.5 Hyperlipidemia, unspecified; E78.00 Pure hypercholesterolemia, unspecified; F17.210 Nicotine dependence, cigarettes, uncomplicated; Z79.4 Long term (current) use of insulin
CPT/HCPCS: 36416; 71045; 80053; 80306; 81003; 81015; 82010; 82330; 82803; 83605; 83690; 83735; 84484; 85025; 87040; 87086; 93005; 94760; 96365; 96367; 96375; 96376; J0692; J1815; J2405; J3370; J3490; J7030; J7050

== ENCOUNTER 2021-05-25 18:39 | Emergency (ER) | payer MEDICARE ==
[2021-05-25] MEDS ORDERED: Sodium Chloride 0.9% 1,000 ML ONE (19:17)
[2021-05-25 19:24] LABS: Bilirubin Negative (Negative); Blood, Urine Negative (Negative); Clarity Slightly Cloudy (Clear); Glucose, Urine (Dipstick) 500 mg/dL (Negative); Ketone, Urine Negative (Negative); Leukocyte Negative (Negative); Nitrite Negative (Negative); Protein, Urine (Dipstick) Negative (Neg-Trace); pH, Urine 7.5 (5.0-9.0)
[2021-05-25 19:49] LABS: #Lymphocytes 1.5 thou/uL (1.20-3.40); #Monocytes 0.4 thou/uL (0.11-0.59); #Neutrophils 2.1 thou/uL (1.40-6.50); %Basophils 0.9 % (0.0-1.0); %Eosinophils 1.1 % (0.0-10.0); %Lymphocytes 36.8 % (21.0-51.0); %Monocytes 9.1 % (0.0-10.0); %Neutrophils 52.1 % (42.0-75.0); Hemoglobin 14.2 g/dL (14.0-18.0); Mean Corpuscular HGB CONC 30.1 g/dL (32.0-36.0); Mean Corpuscular Hemoglobin 24.5 pg (27.0-31.0); Mean Corpuscular Volume 81.5 fL (78.0-98.0); Mean Platelet Volume 8.4 fL (7.4-10.4); Platelet Count 212 thou/uL (130-400); Red Blood Cell (RBC) Count 5.81 mill/uL (4.70-6.10)
[2021-05-25 20:02] LABS: Platelet Morphology Comment Appears Adequate; RBC Morphology Normal
[2021-05-25 20:03] LABS: ALT (SGPT) 10 U/L (8-55); AST (SGOT) 10 U/L (5-34); Albumin 3.3 g/dL (3.5-5.0); Alkaline Phosphatase 99 U/L (40-110); Anion Gap 11 mmol/L (10-20); BUN (Urea Nitrogen) 7 mg/dL (8.9-20.6); Bilirubin, Total 0.5 mg/dL (0.2-1.2); Calc. Creatinine Clearance 0 mL/min (70-130); Calcium 8.9 mg/dL (7.8-10.44); Carbon Dioxide 26 mmol/L (22-29); Chloride 102 mmol/L (98-107); Globulin 3.2 g/dL (2.4-3.5); Glucose 376 mg/dL (70-105); Lipase 25 U/L (8-78); Protein, Total 6.5 g/dL (6.0-8.3); Sodium 135 mmol/L (136-145)
[2021-05-25 20:08] LABS: Base Excess-Venous 3.1 mmol/L (-2.0 to 3.0); Bicarbonate (HCO3v) 28.3 mmol/L (22.0-28.0); CO2 Tension (PvCO2) 44.3 mmHg (42.0-51.0); Calcium, Ionized 1.23 mmol/L (1.15-1.33); Chloride 99 mmol/L (98-107); Hemoglobin - Calc 14.8 g/dL (14.0-18.0); Sodium 137 mmol/L (138-145); T. Carbon Dioxide 29.7 mmol/L (22.0-28.0); vO2 Saturation-calc 99.1 % (60.0-85.0)
== END 2021-05-25 21:50 | disposition home or self-care (01) ==
LOC: NAV ERS 18:39
DX: E11.65 Type 2 diabetes mellitus with hyperglycemia (principal); E11.42 Type 2 diabetes mellitus with diabetic polyneuropathy; E78.5 Hyperlipidemia, unspecified; E78.00 Pure hypercholesterolemia, unspecified; F17.200 Nicotine dependence, unspecified, uncomplicated; Z79.4 Long term (current) use of insulin; Z79.84 Long term (current) use of oral hypoglycemic drugs
CPT/HCPCS: 36416; 80053; 81003; 82010; 82330; 82803; 83605; 83690; 84484; 85025; 93005; 94760; 36415-59; J7050